=== PATIENT | male | born 1995 | race Caucasian/White ===

== ENCOUNTER 2017-03-14 06:03 | Emergency (ER) ==
--- NOTE | 2017-03-14 06:24 | ED.PDOC ---
General ED Provider: Dr. SOPHIE SMITH-ER Chief Complaint: Sore Throat Stated Complaint: my throat is sore Time Seen by Physician: 06:22 Mode of Arrival: Walk-In Information Source: Patient Exam Limitations: No limitations Primary Care Provider: MOISES COTTRELL Nursing and Triage Documentation Reviewed and Agree: Yes EENT Complaint Exam - Throat Complaint/Exam Onset/Duration: 24hrs Symptoms Are: Still present Initial Severity: Mild Current Severity: Mild Aggravating: Reports: Eating Alleviating: Reports: Antipyretics Associated Signs and Symptoms: Reports: Fever, Nasal congestion. Denies: Dysphagia, Drooling, Foreign body sensation, Chills, Cough, Wheezing, Hoarseness , Sinus discomfort, Difficulty breathing, Lethargy, Irritability, Decreased activity, Vomiting, Diarrhea, Decreased hearing, Ear drainage Related History: Reports: Similar Episode Uvula Midline: Yes Erum-tonsillar Fluctuence: No Scarlatinaform Rash Present: No Exanthem: Present: Pharynx Stridor Present: No Sinus Tenderness Present: No Tonsillar Hypertrophy Present: No Tonsillar Exudate Present: No Erum-tonsillar Swelling Present: No Adenopathy Present: Yes Splenomegaly Present: No Differential Diagnoses: Pharyngitis Review of Systems - Review Of Systems Constitutional: Reports: Fever Eyes: Reports: No symptoms Ears, Nose, Mouth, Throat: Reports: Throat pain, Throat swelling Respiratory: Reports: Cough Cardiac: Reports: No symptoms GI: Reports: No symptoms : Reports: No symptoms Musculoskeletal: Reports: No symptoms Skin: Reports: No symptoms Neurological: Reports: No symptoms Endocrine: Reports: No symptoms Hematologic/Lymphatic: Reports: No symptoms All Other Systems: Reviewed and Negative Past Medical History - Past Medical History Previously Healthy: Yes Endocrine: Reports: None Cardiovascular: Reports: Hypertension Respiratory: Reports: None Hematological: Reports: None Gastrointestinal: Reports: None Genitourinary: Reports: None Neuro/Psych: Reports: None Musculoskeletal: Reports: Back Pain Cancer: Reports: Other Other Pertinent Past Medical History: chronic low back - Surgical History General Surgical History: Reports: Cholecystectomy, Tonsillectomy, Adenoidectomy - Family History Family History: Reports: Unknown - Social History Smoking Status: Never smoker Hx Substance Use: No Alcohol Screening: None Physical Exam - Physical Exam Appearance: Well-appearing Pain Distress: Mild Eyes: RONAK, EOMI, Conjunctiva clear ENT: Erythema Neck: Supple Respiratory: Airway patent, Breath sounds clear, Breath sounds equal, Respirations nonlabored Cardiovascular: RRR, Pulses normal, No rub, No murmur GI/: Soft, Nontender, No masses, Bowel sounds normal, No Organomegaly Musculoskeletal: Normal strength Skin: Warm Neurological: Sensation intact, Motor intact, Reflexes intact, Cranial nerves intact, Alert, Oriented Psychiatric: Affect appropriate, Mood appropriate Critical Care Note - Critical Care Note Total Time (mins): 0 Course - Course Orders, Labs, Meds: Orders Category Date Time Status RAPID STREP SCREEN [STREP SCREEN] Stat LAB 03/14/17 06:21 Uncollected Departure - Departure Time of Disposition: 06:23 Disposition: HOME SELF-CARE Discharge Problem: Sore throat symptom Instructions: Pharyngitis (ED) Condition: Good Pt referred to PMD for follow-up: Yes Additional Instructions: amoxil 500mg tid #30--salt water gargles--tyenol for temp--recheck in 72hrs ifnot better Allergies/Adverse Reactions: Allergies No Known Allergies Allergy (Verified 07/10/16 13:52) Home Medications: Ambulatory Orders Lisinopril [Zestril] 20 mg PO DAILY 06/10/13 Clonidine HCl 0.1 mg PO DAILY 07/10/16 Gabapentin 300 mg PO TID 07/10/16 Disposition Discussed With: Patient
[2017-03-14 06:31] VITALS: BP 146/94; TEMP 98.8; BMI 47.8
== END 2017-03-14 06:38 | disposition home or self-care (01) ==
LOC: ED 06:03
DX: J02.9 Acute pharyngitis, unspecified (principal)
CPT/HCPCS: 87651; 87880; 99283

== ENCOUNTER 2017-03-16 15:48 | Emergency (ER) ==
[2017-03-16 15:48] VITALS: BMI 47.8
[2017-03-16 15:54] VITALS: BP 159/91; TEMP 97.8
[2017-03-16] MEDS ORDERED: CORTISPORIN OTIC SUSP OT STA (16:30)
--- NOTE | 2017-03-16 16:30 | ED.PDOC ---
General ED Provider: Dr. ZOË XIONG JR Chief Complaint: Foreign Body in Ear Stated Complaint: pt states ear was itching so he was using q tip to scratch it and end with cotton is stuck in ear. [ End ] Time Seen by Physician: 16:30 Mode of Arrival: Walk-In Information Source: Patient Exam Limitations: No limitations Primary Care Provider: MOISES COTTRELL Nursing and Triage Documentation Reviewed and Agree: No Review of Systems - Review Of Systems Constitutional: Reports: No symptoms Eyes: Reports: No symptoms Ears, Nose, Mouth, Throat: Reports: Ear pain Respiratory: Reports: No symptoms Cardiac: Reports: No symptoms GI: Reports: No symptoms : Reports: No symptoms Musculoskeletal: Reports: No symptoms Skin: Reports: No symptoms Neurological: Reports: No symptoms Endocrine: Reports: No symptoms Hematologic/Lymphatic: Reports: No symptoms All Other Systems: Other Past Medical History - Past Medical History Previously Healthy: Yes Endocrine: Reports: None Cardiovascular: Reports: Hypertension Respiratory: Reports: None Hematological: Reports: None Gastrointestinal: Reports: None Genitourinary: Reports: None Neuro/Psych: Reports: None Musculoskeletal: Reports: Back Pain Cancer: Reports: Other Other Pertinent Past Medical History: chronic low back - Surgical History General Surgical History: Reports: Cholecystectomy, Tonsillectomy, Adenoidectomy - Family History Family History: Reports: Unknown - Social History Smoking Status: Never smoker Hx Substance Use: No Alcohol Screening: Occasionally Physical Exam - Physical Exam Appearance: Well-appearing, Obese Pain Distress: Mild Eyes: RONAK, EOMI, Conjunctiva clear ENT: Erythema (fl;occulent matter no FB excoriation without edema) Neck: Supple Respiratory: Airway patent, Breath sounds clear, Breath sounds equal, Respirations nonlabored Cardiovascular: RRR, Pulses normal, No rub, No murmur GI/: Soft, Nontender, No masses, Bowel sounds normal, No Organomegaly Musculoskeletal: Normal strength, ROM intact, No edema, No calf tenderness Skin: Warm, Dry, Normal color Neurological: Sensation intact, Motor intact, Reflexes intact, Cranial nerves intact, Alert, Oriented Re-Evaluation - Re-Evaluation Time of Re-Evaluation: 17:14 Status: Improved (after cortisporin no foreign matter observed) - Re-Evaluation Time of Re-Evaluation: 17:20 (rechekc with rn mucoid white matter removed with forcesp) Critical Care Note - Critical Care Note Total Time (mins): 0 Course - Course Vital Signs: Temp Pulse Resp BP Pulse Ox 03/16/17 15:48 97.8 F 114 H 18 159/91 H 95 Departure - Departure Time of Disposition: 17:14 Disposition: HOME SELF-CARE Discharge Problem: Foreign body in ear Instructions: Otitis Externa (ED) Condition: Good Pt referred to PMD for follow-up: Yes Additional Instructions: cortisporin four drops each side four times a day for five days recheck ears PMD one to two weeks return if worse avoid solids in ears may clean with liquids such as glycerine or sweet oil Allergies/Adverse Reactions: Allergies No Known Allergies Allergy (Verified 03/16/17 15:54)
== END 2017-03-16 17:30 | disposition home or self-care (01) ==
LOC: ED 15:48
DX: T16.9XXA Foreign body in ear, unspecified ear, initial encounter (principal); H60.90 Unspecified otitis externa, unspecified ear
CPT/HCPCS: 99282

== ENCOUNTER 2017-06-25 14:18 | Outpatient (CLI) | payer OTHER, BC ==
[2017-06-25 16:05] LABS: BASOPHILS % (AUTO) 0.6 % (0.0-3.0); EOSINOPHILS % (AUTO) 2.1 % (0.0-7.0); HEMATOCRIT 42.9 % (42.0-52.0); HEMOGLOBIN 14.4 g/dl (14.0-18.0); LYMPHOCYTES # (AUTO) 2.3 K/uL (0.60-3.4); LYMPHOCYTES % (AUTO) 24.9 (10.0-50.0); MEAN CORPUSCULAR HEMOGLOBIN 28.6 pg (27.0-31.0); MEAN CORPUSCULAR HGB CONC 33.6 (31.8-35.4); MEAN CORPUSCULAR VOLUME 85.3 fl (80.0-94.0); MONOCYTES # (AUTO) 0.5 K/uL (0.4-2.0); NEUTROPHILS # (AUTO) 6.2 K/ul (2.0-6.9); NEUTROPHILS % (AUTO) 67.1; PLATELET COUNT 273 10^3/uL (140-440); RED BLOOD COUNT 5.03 10^6/ul (4.70-6.10); WHITE BLOOD COUNT 9.32 K/ul (4.2-10.2)
[2017-06-25 16:06] LABS: BASOPHILS # (AUTO) 0.1 K/uL (0-0.2); EOSINOPHILS # (AUTO) 0.2 K/ul (0.0-0.7); IMMATURE GRANULOCYTE % (AUTO) 0.3 % (0.0-5.0)
[2017-06-25 16:46] LABS: ALBUMIN 3.7 g/dL (3.4-5.0); ALBUMIN/GLOBULIN RATIO 0.86; ANION GAP 16.2; BILIRUBIN,TOTAL 0.49 mg/dL (0.00-1.20); BUN/CREATININE RATIO 11.26; CALCIUM 9.7 mg/dL (8.2-10.2); CHOL/HDL RATIO 6.1 (4.5-6.4); CREATININE 0.71 mg/dL (0.60-1.10); POTASSIUM 4.2 mmol/L (3.5-5.1)
== END 2017-06-25 14:19 | disposition home or self-care (01) ==
LOC: RAD 14:18 → CAR 14:19
PROVIDERS: ATTEND Nurse Practitioner Family
DX: E78.5 Hyperlipidemia, unspecified (principal); E66.9 Obesity, unspecified; I10 Essential (primary) hypertension
CPT/HCPCS: 36415; 80053; 80061; 84439; 84443; 85025; 93005; 93010

== ENCOUNTER 2017-07-02 10:30 | Outpatient (CLI) ==
--- NOTE | 2017-07-02 11:14 | US ---
EXAM: Thyroid ultrasound History: Abnormal thyroid function tests. Technique: Multiple sonographic images through the thyroid gland were obtained. Color duplex Dopple r was used to interrogate vascular flow. Findings: The right lobe of the thyroid measures 5.7 cm x 2.2 cm x 2.2 cm and demonstrates multiple nodules wit h the largest being complex and measuring 1.3 cm. The thyroid isthmus measures 0.5 cm in thickness. The left lobe of the thyroid measures 4.9 cm x 2.3 cm x 1.9 cm demonstrates a 1.3 cm complex nodule. The thyroid gland is not hypervascular. No extrathyroidal masses are identified. Impression: Thyroid is upper limits of normal in size. Bilateral thyroid nodules as detailed above. Recommend follow-up ultrasound in 6 months to document stability.
== END 2017-07-02 10:31 | disposition home or self-care (01) ==
LOC: RAD 10:30
PROVIDERS: ATTEND Nurse Practitioner Family
DX: R94.6 Abnormal results of thyroid function studies (principal)

== ENCOUNTER 2017-07-09 14:32 | Outpatient (CLI) ==
--- NOTE | 2017-07-09 15:00 | DI ---
EXAM: KUB HISTORY: Lower back pain. COMPARISON: CT abdomen pelvis 10/09/2013 and multiple priors FINDINGS: There are surgical clips in right upper quadrant. There is scattered gas throughout the co bro. There are no dilated loops of bowel, air fluid levels, pneumatosis or portal venous gas. The l iver appears mildly enlarged. The osseous structures are unremarkable. IMPRESSION: 1. Nonobstructive bowel gas pattern. 2. Hepatomegaly.
[2017-07-09 15:08] LABS: BILIRUBIN,URINE Negative (NEGATIVE); KETONES,URINE Negative (NEGATIVE); LEUKOCYTE ESTERASE ,URINE Negative (NEGATIVE); NITRITE,URINE Negative (NEGATIVE); PH,URINE 7.5 (5-9); PROTEIN,URINE Negative (NEGATIVE); URINE, BLOOD Negative (NEGATIVE)
[2017-07-09 15:36] LABS: ADD URINE MICROSCOPIC NO
== END 2017-07-09 14:33 | disposition home or self-care (01) ==
LOC: RAD 14:32
PROVIDERS: ATTEND Nurse Practitioner Family
DX: M54.5 Low back pain (principal); R74.8 Abnormal levels of other serum enzymes; R73.09 Other abnormal glucose
CPT/HCPCS: 36415; 80074; 81001; 83036

== ENCOUNTER 2017-07-22 14:32 | Emergency (ER) | payer OTHER, BC ==
[2017-07-22 14:42] VITALS: TEMP 97.4; BMI 48.2
--- NOTE | 2017-07-22 14:55 | ED.PDOC ---
General ED Provider: Dr. NOLVIA AMBRIZ Chief Complaint: Respiratory Complaint Stated Complaint: cough, flu like symptoms Time Seen by Physician: 14:35 Mode of Arrival: Walk-In Information Source: Patient Exam Limitations: No limitations Primary Care Provider: MOISES COTTRELL Nursing and Triage Documentation Reviewed and Agree: Yes Respiratory Complaint Exam - Respiratory Complaint/Exam Onset/Duration: 1 week Symptoms Are: Still present, Resolved Timing: Intermittent Initial Severity: Moderate Current Severity: Mild Location: Nose, Throat, Chest Character: Reports: Non-productive cough Aggravating: Reports: None Alleviating: Reports: None Associated Signs and Symptoms: Reports: URI, Nasal congestion, Sore throat Related History: Reports: Similar episode History of Healthcare-Acquired Pneumonia: No Related Surgical History: Reports: None Cardiac Risk Factors: Reports: None Pseudomonas Risk Factors: Reports: None Tuberculosis Risk Factors: Reports: None Status Asthmaticus Risk Factors: Reports: None Home Oxygen Use: No Recent Stress Test: No Recent Echo/LV Function: No Current Antibiotic Use: No Current Asthma Medication Use: No Respiratory Distress: None Inadequate Respiratory Effort: No Dysphagia Present: No Stridor Present: No JVD Present: No Retractions: Not Present Diminished Breath Sounds: No Sinus Tenderness: None Grunting Respirations: No Kussmaul Respirations: No Differential Diagnoses: Pneumonia, Bronchitis Review of Systems - Review Of Systems Constitutional: Reports: Malaise Eyes: Reports: No symptoms Ears, Nose, Mouth, Throat: Reports: Throat pain Respiratory: Reports: Cough Cardiac: Reports: No symptoms GI: Reports: No symptoms : Reports: No symptoms Musculoskeletal: Reports: No symptoms Skin: Reports: No symptoms Neurological: Reports: No symptoms Endocrine: Reports: No symptoms Hematologic/Lymphatic: Reports: No symptoms All Other Systems: Reviewed and Negative Past Medical History - Past Medical History Previously Healthy: Yes Endocrine: Reports: None Cardiovascular: Reports: Hypertension Respiratory: Reports: None Hematological: Reports: None Gastrointestinal: Reports: None Genitourinary: Reports: None Neuro/Psych: Reports: None Musculoskeletal: Reports: Back Pain Cancer: Reports: Other Other Pertinent Past Medical History: chronic low back - Surgical History General Surgical History: Reports: Cholecystectomy, Tonsillectomy, Adenoidectomy - Family History Family History: Reports: Unknown - Social History Smoking Status: Never smoker Hx Substance Use: No Alcohol Screening: Occasionally Physical Exam - Physical Exam Appearance: Well-appearing, No pain distress, Well-nourished Eyes: RONAK, EOMI, Conjunctiva clear ENT: Ears normal, Nose normal, Oropharynx normal Respiratory: Airway patent, Breath sounds clear, Breath sounds equal, Respirations nonlabored Cardiovascular: RRR, Pulses normal, No rub, No murmur GI/: Soft, Nontender, No masses, Bowel sounds normal, No Organomegaly Musculoskeletal: Normal strength, ROM intact, No edema, No calf tenderness Skin: Warm, Dry, Normal color Neurological: Sensation intact, Motor intact, Reflexes intact, Cranial nerves intact, Alert, Oriented Psychiatric: Affect appropriate, Mood appropriate Critical Care Note - Critical Care Note Total Time (mins): 0 Course - Course Vital Signs: Temp Pulse Resp BP Pulse Ox 07/22/17 14:36 97.4 F L 106 H 20 0/0 L 96 Departure - Departure Time of Disposition: 14:54 Disposition: HOME SELF-CARE Discharge Problem: Bronchitis Instructions: Wheezing (ED), How Your Lungs Work (ED), Acute Bronchitis (ED) Condition: Good Pt referred to PMD for follow-up: Yes Additional Instructions: Please call your Family Physician as soon as possible to schedule a follow-up appointment. Allergies/Adverse Reactions: Allergies No Known Allergies Allergy (Verified 07/22/17 14:43)
[2017-07-22 15:14] VITALS: BP 142/92
== END 2017-07-22 15:03 | disposition home or self-care (01) ==
LOC: ED 14:32
DX: J40 Bronchitis, not specified as acute or chronic (principal)
CPT/HCPCS: 99282

== ENCOUNTER 2017-07-29 14:30 | Outpatient (CLI) | payer OTHER, BC ==
--- NOTE | 2017-07-29 15:29 | DI ---
EXAM: Right wrist, three views, 07/29/2017 HISTORY: Paresthesia COMPARISON: None. FINDINGS / IMPRESSION: Normal anatomic alignment is maintained. The visualized osseous structures a ppear intact. No fracture or dislocation. No gross soft tissue abnormality. No acute osseous abnormality.
== END 2017-07-29 14:31 | disposition home or self-care (01) ==
LOC: RAD 14:30
PROVIDERS: ATTEND Nurse Practitioner Family
DX: R20.2 Paresthesia of skin (principal)

== ENCOUNTER 2017-09-10 02:26 | Emergency (ER) ==
[2017-09-10 02:38] VITALS: TEMP 98.3; BMI 53.1
[2017-09-10] MEDS ORDERED: ZOFRAN 4 MG/2 ML IVP STA (02:41)
[2017-09-10] MEDS ORDERED: PROTONIX IV IVP STA (02:41)
[2017-09-10] MEDS ORDERED: SODIUM CHLORIDE 1,000 ML IV STA (02:41)
[2017-09-10] MEDS ORDERED: MORPHINE 4 MG/ML VIAL IVP STA (02:46)
[2017-09-10 02:58] LABS: BASOPHILS # (AUTO) 0.1 K/uL (0-0.2); BASOPHILS % (AUTO) 0.6 % (0.0-3.0); EOSINOPHILS # (AUTO) 0.1 K/ul (0.0-0.7); EOSINOPHILS % (AUTO) 0.9 % (0.0-7.0); HEMATOCRIT 42.9 % (42.0-52.0); HEMOGLOBIN 14.3 g/dl (14.0-18.0); IMMATURE GRANULOCYTE % (AUTO) 0.4 % (0.0-5.0); LYMPHOCYTES # (AUTO) 2.9 K/uL (0.60-3.4); LYMPHOCYTES % (AUTO) 19.5 (10.0-50.0); MEAN CORPUSCULAR HEMOGLOBIN 28.7 pg (27.0-31.0); MEAN CORPUSCULAR HGB CONC 33.3 (31.8-35.4); MONOCYTES # (AUTO) 1.1 K/uL (0.4-2.0); MONOCYTES % (AUTO) 7.2 (0-10); NEUTROPHILS # (AUTO) 10.6 K/ul (2.0-6.9); NEUTROPHILS % (AUTO) 71.4; PLATELET COUNT 284 10^3/uL (140-440); RED BLOOD COUNT 4.99 10^6/ul (4.70-6.10); WHITE BLOOD COUNT 14.85 K/ul (4.2-10.2)
[2017-09-10 02:59] LABS: BILIRUBIN,URINE Negative (NEGATIVE); KETONES,URINE Negative (NEGATIVE); LEUKOCYTE ESTERASE ,URINE Negative (NEGATIVE); NITRITE,URINE Negative (NEGATIVE); PH,URINE 5.5 (5-9); PROTEIN,URINE Negative (NEGATIVE); URINE, BLOOD Negative (NEGATIVE)
[2017-09-10 03:02] LABS: ADD URINE MICROSCOPIC NO
[2017-09-10 03:18] LABS: ALBUMIN 4.1 g/dL (3.4-5.0); ALBUMIN/GLOBULIN RATIO 0.95; ANION GAP 18.3; BILIRUBIN,TOTAL 0.59 mg/dL (0.00-1.20); BUN/CREATININE RATIO 17.33; CREATININE 0.75 mg/dL (0.60-1.10); POTASSIUM 4.3 mmol/L (3.5-5.1); TOTAL PROTEIN 8.4 g/dL (6.4-8.2)
--- NOTE | 2017-09-10 03:32 | CT ---
Exam: CT of the abdomen and pelvis without contrast History: Right upper quadrant abdominal pain Technique: [address] of the abdomen and pelvis without intravascular contrast FINDINGS: The lung bases are clear. The liver density is diffusely decreased measuring 15 HU. The cranial caudal liver diameter is 30 cm. Prior cholecystectomy. The pancreas, spleen and left adrena l gland appear normal. There is a 2.6 cm right adrenal adenoma. Kidneys and proximal collecting syst em are unremarkable. The appendix is normal. Bowel loops demonstrate normal caliber. No inflamatory c hange seen in the mesentery or retroperitoneum. Vascular structures appear normal by noncontrast CT. Pelvic genitourinary structures appear normal. Pelvic bowel loops are unremarkable. No inflammatory c hange in the pelvic fat. No acute abnormality of the abdominal or pelvic skeleton. Prior L3 fracture versus vertebral anomaly with associated mild right convexity stable from 10/09/2013. Impression: 1. No inflammatory process, bowel or urinary obstruction is seen. 2. Severe liver steatosis with hepatomegaly
--- NOTE | 2017-09-10 04:20 | ED.PDOC ---
General ED Provider: Dr. BRYANT MONROE Chief Complaint: Abdominal Pain Stated Complaint: Patient is a 22 year old who states he woke up yesterday morning with RUQ abdominal pain and cramping, emesis >10 times, 5 x within the last hour. Diarrhea stools since noon, about 10 Time Seen by Physician: 02:45 Mode of Arrival: Walk-In Information Source: Patient Primary Care Provider: MOISES COTTRELL Nursing and Triage Documentation Reviewed and Agree: Yes Review of Systems - Review Of Systems Constitutional: Reports: No symptoms Eyes: Reports: No symptoms Ears, Nose, Mouth, Throat: Reports: No symptoms Respiratory: Reports: No symptoms Cardiac: Reports: No symptoms GI: Reports: Abdominal pain, Diarrhea, Nausea, Vomiting : Reports: No symptoms Musculoskeletal: Reports: No symptoms Skin: Reports: No symptoms Neurological: Reports: No symptoms Endocrine: Reports: No symptoms Hematologic/Lymphatic: Reports: No symptoms All Other Systems: Reviewed and Negative Past Medical History - Past Medical History Previously Healthy: Yes Endocrine: Reports: None Cardiovascular: Reports: Hypertension Respiratory: Reports: None Hematological: Reports: None Gastrointestinal: Reports: None Genitourinary: Reports: None Neuro/Psych: Reports: None Musculoskeletal: Reports: Back Pain Cancer: Reports: None Other Pertinent Past Medical History: chronic low back, obesity - Surgical History General Surgical History: Reports: Cholecystectomy, Tonsillectomy, Adenoidectomy - Family History Family History: Reports: Unknown - Social History Smoking Status: Never smoker Hx Substance Use: No Alcohol Screening: Occasionally - Immunizations Tetanus Shot up to Date: Yes Physical Exam - Physical Exam Appearance: Ill-appearing, Obese Ill-appearing: Moderate Pain Distress: Severe Neck: Supple Respiratory: Airway patent, Breath sounds clear, Breath sounds equal, Respirations nonlabored GI/: Tender Musculoskeletal: Normal strength Skin: Warm, Dry, Normal color Neurological: Sensation intact, Motor intact Psychiatric: Anxious Interpretation - Radiology Interpretation Radiology Interpretation By: Radiologist Radiology Results: Negative Exam Interpreted: CT Scan (severe liver steatosis ) Re-Evaluation - Re-Evaluation Time of Re-Evaluation: 04:00 Status: Improved Vital Signs Stable: Yes Pain Level: better Critical Care Note - Critical Care Note Total Time (mins): 0 Course - Course Hematology/Chemistry: 09/10/17 02:55 09/10/17 02:55 Orders, Labs, Meds: Lab Review 11/09/10/17 09/10/17 02:55 02:55 02:55 WBC 14.85 H RBC 4.99 Hgb 14.3 Hct 42.9 MCV 86.0 MCH 28.7 MCHC 33.3 RDW Coeff of Stephen 13.5 Plt Count 284 Immature Gran % (Auto) 0.4 Neut % (Auto) 71.4 Lymph % (Auto) 19.5 [place] % (Auto) 7.2 Eos % (Auto) 0.9 Baso % (Auto) 0.6 Immature Gran # (Auto) 0.1 Neut # 10.6 H Lymph # 2.9 [place] # 1.1 Eos # 0.1 Baso # 0.1 Sodium 136 Potassium 4.3 Chloride 103 Carbon Dioxide 19 L Anion Gap 18.3 BUN 13 Creatinine 0.75 Estimated GFR (MDRD) 131.00 BUN/Creatinine Ratio 17.33 Glucose 209 H Calcium 10.0 Total Bilirubin 0.59 AST 55 H ALT 100 H Alkaline Phosphatase 77 Total Protein 8.4 H Albumin 4.1 Globulin 4.3 Albumin/Globulin Ratio 0.95 Amylase 45 Lipase 19 Urine Color Yellow Urine Clarity Clear Urine pH 5.5 Ur Specific [place] 1.025 Urine Protein Negative Urine Glucose (UA) Negative Urine Ketones Negative Urine Blood Negative Urine Nitrite Negative Urine Bilirubin Negative Urine Urobilinogen 0.2 Ur Leukocyte Esterase Negative Orders Category Date Time Status ED IV/MEDIPORT/POWERPORT .ONCE EMERGENCY 09/10/17 02:41 Active AMYLASE Stat LAB 09/10/17 02:55 Completed CBC W/ AUTO DIFF Stat LAB 09/10/17 02:55 Completed COMPREHENSIVE METABOLIC PANEL Stat LAB 09/10/17 02:55 Completed LIPASE Stat LAB 09/10/17 02:55 Completed URINALYSIS C & S IF INDICATED Stat LAB 09/10/17 02:55 Completed 0.9 % Sodium Chloride [Saline Flush] MEDS 09/10/17 02:41 Discontinued 1 syr IVF PRN PRN Ketorolac Tromethamine [Toradol] MEDS 09/10/17 04:23 Discontinued 30 mg IVP ONCE STA Morphine Sulfate [Morphine 4 mg/ml Vial] MEDS 09/10/17 02:46 Discontinued 4 mg IVP ONCE STA Ondansetron HCl/Pf [Zofran 4 mg/2 ml] MEDS 09/10/17 02:41 Discontinued 4 mg IVP ONCE STA Pantoprazole Sodium [Protonix IV] MEDS 09/10/17 02:41 Discontinued 40 mg IVP ONCE STA Sodium Chloride 0.9% [Sodium Chloride] 1,000 ml MEDS 09/10/17 02:[address] ABD/PEL WO RENAL STONE PROT Stat RADS 09/10/17 02:41 Completed Medications Discontinued Medications Generic Name Dose Route Start Last Admin Trade Name Freq PRN Reason Stop Dose Admin Sodium Chloride 1,000 mls @ 1,000 mls/hr 09/10/17 02:41 09/10/17 03:15 Sodium Chloride IV 09/10/17 03:40 1,000 mls/hr BOLUS STA Administration Ketorolac Tromethamine 30 mg 09/10/17 04:23 09/10/17 04:33 Toradol IVP 09/10/17 04:24 30 mg ONCE STA Administration Morphine Sulfate 4 mg 09/10/17 02:46 09/10/17 03:16 Morphine 4 Mg/Ml Vial IVP 09/10/17 02:47 4 mg ONCE STA Administration Ondansetron HCl 4 mg 09/10/17 02:41 09/10/17 03:16 Zofran 4 Mg/2 Ml IVP 09/10/17 02:42 4 mg ONCE STA Administration Pantoprazole Sodium 40 mg 09/10/17 02:41 09/10/17 03:19 Protonix Iv IVP 09/10/17 02:42 40 mg ONCE STA Administration Sodium Chloride 1 syr 09/10/17 02:41 09/10/17 03:21 Saline Flush IVF 1 syr PRN PRN Administration To flush IV Vital Signs: Temp Pulse Resp BP Pulse Ox 09/10/17 04:55 128/73 09/10/17 02:27 98.3 F 107 H 20 164/97 H 97 Departure - Departure Time of Disposition: 04:45 Disposition: HOME SELF-CARE Discharge Problem: Abdominal pain, Fatty liver disease, nonalcoholic Instructions: Non-Alcoholic Fatty Liver Disease (ED), Abdominal Pain (ED) Condition: Fair Pt referred to PMD for follow-up: Yes Additional Instructions: Push fluids Take medications as prescribed Follow up with PCP ini 3 days. Prescriptions: Dicyclomine HCl [Bentyl] 10 mg PO TID PRN #20 capsule PRN Reason: Abdominal Pain Pantoprazole Sodium [Protonix] 40 mg PO DAILY LAB #30 tablet. Allergies/Adverse Reactions: Allergies No Known Allergies Allergy (Verified 09/10/17 02:38) Home Medications: Ambulatory Orders Dicyclomine HCl [Bentyl] 10 mg PO TID PRN #20 capsule 09/10/17 Pantoprazole Sodium [Protonix] 40 mg PO DAILY LAB #30 tablet. 09/10/17 Disposition Discussed With: Patient, Family
[2017-09-10] MEDS ORDERED: TORADOL IVP STA (04:23)
[2017-09-10 04:55] VITALS: BP 128/73
== END 2017-09-10 04:56 | disposition home or self-care (01) ==
LOC: ED 02:26
DX: R10.9 Unspecified abdominal pain (principal); K76.0 Fatty (change of) liver, not elsewhere classified
CPT/HCPCS: 36415; 74176; 80053; 81001; 82150; 83690; 85025; 96361; 96374; 96375; 99283

== ENCOUNTER 2017-09-11 07:47 | Outpatient (CLI) ==
[2017-09-11 09:00] VITALS: BMI 52.1
== END 2017-09-11 07:48 | disposition home or self-care (01) ==
LOC: DIETCN 07:47
PROVIDERS: ATTEND Nurse Practitioner Family
DX: E11.9 Type 2 diabetes mellitus without complications (principal)
CPT/HCPCS: 97802

== ENCOUNTER 2017-09-15 08:49 | Outpatient (CLI) ==
--- NOTE | 2017-09-15 09:31 | US ---
EXAM: Abdominal ultrasound limited HISTORY: Diabetes and right upper quadrant pain COMPARISON: CT abdomen pelvis 10/09/2013 and ultrasound 12/02/2015 TECHNIQUE: Sonographic and limited Doppler evaluation of the right upper quadrant was performed. FINDINGS: The liver is increased in echogenicity and measures enlarged at 23 cm. The portal vein is patent. The gallbladder has been removed. Common bile duct is unremarkable and measures 0.6 cm in d iameter. The pancreas is not visualized due to bowel gas. The right kidney measures 13.4 x 6.5 x 5. 9 cm with 2 cm of renal cortical thickening. IMPRESSION: Hepatomegaly with increased echogenicity consistent with hepatic steatosis versus hepati c parenchymal disease. Prior cholecystectomy.
== END 2017-09-15 08:50 | disposition home or self-care (01) ==
LOC: RAD 08:49
PROVIDERS: ATTEND Nurse Practitioner Family
DX: E11.9 Type 2 diabetes mellitus without complications (principal)

== ENCOUNTER 2017-12-29 10:44 | Outpatient (CLI) | END 2017-12-29 10:45 | disposition home or self-care (01) | LOC: FCC-LAB 10:44 | PROVIDERS: ATTEND Nurse Practitioner Family | DX: E78.5 Hyperlipidemia, unspecified (principal); E11.9 Type 2 diabetes mellitus without complications; I10 Essential (primary) hypertension | CPT/HCPCS: 36415; 80053; 80061; 83036; 85025 ==

== ENCOUNTER 2018-02-13 11:31 | Outpatient (CLI) | payer OTHER, BC ==
--- NOTE | 2018-02-13 12:15 | US ---
Exam: Cho-scale and color ultrasonographic evaluation of the abdominal soft tissues. Comparison: CT abdomen pelvis performed 10/09/2013. Reason for exam: Localize swelling, lump or mass. FINDINGS: There are nodular densities seen in the subcutaneous fat of the anterior abdomen. Two nod ules are seen in the right M1 nodule is seen on the left. The largest nodule on the left measures ap proximately 1.94 x 1.0 x 3.5 cm. The left nodule measures approximately 1.6 x 1.3 x 1.6 cm. There is a potential communication from the nodular densities to the skin seen bilaterally. Impression: Nonspecific nodular densities are seen within the subcutaneous fat of the abdomen with potential cuta neous tracts. Imaging findings can be seen with injection granuloma, sebaceous collections, post infl ammatory change, and other etiologies. The differential remains wide. If clinical concern exists, CT imaging may be performed for further characterization.
== END 2018-02-13 11:32 | disposition home or self-care (01) ==
LOC: RAD 11:31
PROVIDERS: ATTEND Nurse Practitioner Family
DX: R22.2 Localized swelling, mass and lump, trunk (principal)

== ENCOUNTER 2018-05-07 11:47 | Outpatient (CLI) | END 2018-05-07 11:48 | disposition home or self-care (01) | LOC: FCC-LAB 11:47 | PROVIDERS: ATTEND Nurse Practitioner Family | DX: E11.9 Type 2 diabetes mellitus without complications (principal); I10 Essential (primary) hypertension; F41.8 Other specified anxiety disorders | CPT/HCPCS: 36415; 80053; 80061; 83036; 84439; 84443; 85025 ==

== ENCOUNTER 2023-12-31 15:28 | Inpatient (IN) ==
[2023-12-31 15:59] LABS: BASOPHILS # (AUTO) 0.1 K/uL (0-0.2); BASOPHILS % (AUTO) 0.9 % (0.0-3.0); EOSINOPHILS # (AUTO) 0.3 K/ul (0.0-0.7); EOSINOPHILS % (AUTO) 3.5 % (0.0-7.0); HEMATOCRIT 41.1 % (42.0-52.0); HEMOGLOBIN 13.1 g/dl (14.0-18.0); IMMATURE GRANULOCYTE # (AUTO) 0.1 (0.0-1.0); IMMATURE GRANULOCYTE % (AUTO) 0.6 % (0.0-5.0); LYMPHOCYTES # (AUTO) 2.5 K/uL (0.60-3.4); MEAN CORPUSCULAR HEMOGLOBIN 27.4 pg (27.0-31.0); MEAN CORPUSCULAR HGB CONC 31.9 (31.8-35.4); MONOCYTES # (AUTO) 0.4 K/uL (0.4-2.0); MONOCYTES % (AUTO) 4.4 (0-10); NEUTROPHILS # (AUTO) 4.8 K/ul (2.0-6.9); NEUTROPHILS % (AUTO) 59.6 % (42.2-75.2); PLATELET COUNT 292 10^3/uL (140-440); RDW COEFFICIENT OF VARIATION 14.5 % (11.6-14.8); RED BLOOD COUNT 4.78 10^6/ul (4.70-6.10)
[2023-12-31 16:09] LABS: ALANINE AMINOTRANSFERASE 43.7 U/L (0-50); ALKALINE PHOSPHATASE 97.5 U/L (38-126); ASPARTATE AMINO TRANSFERASE 36.8 U/L (17-59); BILIRUBIN,TOTAL 0.64 mg/dL (0.2-1.3); BLOOD UREA NITROGEN 8.5 mg/dL (9-20); CALCIUM 9.16 mg/dL (8.4-10.2); CARBON DIOXIDE 20.8 mmol/L (22-30.0); CHLORIDE 108.3 mmol/L (98-107); CREATININE 0.44 mg/dL (0.60-1.10); GLUCOSE 280.9 mg/dL (74-106); TOTAL PROTEIN 7.86 g/dL (6.3-8.2)
[2023-12-31 16:11] LABS: SODIUM 138.4 mmol/L (134.5-145)
[2023-12-31 16:15] LABS: MOLECULAR FLU A NEGATIVE BY NAAT (NEGATIVE); MOLECULAR FLU B NEGATIVE BY NAAT (NEGATIVE); SARS COV-2 RNA RAPID NAAT NEGATIVE (NEGATIVE)
--- NOTE | 2023-12-31 16:15 | DI ---
EXAM: FRONTAL CHEST RADIOGRAPH(S). 1 VIEW. History: Chest pain, shortness of breath Comparison: 01/31/2023 Findings: Heart size normal. No pneumothorax or pleural effusion. Pulmonary alveolar edema. No lob ar consolidation. Impression: Pulmonary alveolar edema.
[2023-12-31] MEDS: ASPIRIN CHEWABLE PO STA (16:19)
[2023-12-31 16:21] LABS: TROPONIN I < 0.012 ng/ml (0.0000-0.120)
[2023-12-31 16:25] LABS: AMPHETAMINE SCREEN,URINE NEGATIVE (NEGATIVE); BARBITURATE SCREEN,URINE NEGATIVE (NEGATIVE); BENZODIAZEPINES SCREEN,URINE NEGATIVE (NEGATIVE); CANNABINOID SCREEN,URINE POSITIVE (NEGATIVE); COCAIN SCREEN,URINE NEGATIVE (NEGATIVE); METHADONE URINE SCREEN NEGATIVE (NEGATIVE); METHAMPHETAMINES SCREEN,URINE NEGATIVE (NEGATIVE); OPIATE SCREEN,URINE NEGATIVE (NEGATIVE); OXYCODONE URINE SCREEN NEGATIVE (NEGATIVE); PHENCYCLIDINE SCREEN,URINE NEGATIVE (NEGATIVE); TRICYCLIC ANTIDEPRESSANTS URIN NEGATIVE (NEGATIVE)
[2023-12-31] MEDS: DECADRON IVP ONE (17:36)
--- NOTE | 2023-12-31 17:57 | CT ---
EXAM: CHEST CTA WITH CONTRAST (PULMONARY ARTERY) HISTORY: Chest pain and shortness of breath. Cough. TECHNIQUE: CTA acquisition of the chest from the thoracic inlet to the upper abdomen following IV con trast administration timed to filling of the pulmonary artery. IV Contrast: 100 mL of Omnipaque 350 administered. 3D/MIP/VR images were utilized. CT Dose Reduction Techniques Employed: Yes. COMPARISON: None. FINDINGS: Pulmonary Embolism: - Diagnostic quality: Adequate. - Central (Main/Lobar/Interlobar): No embolus. - Peripheral (Segmental/Subsegmental): No embolus. - Right ventricle/Left ventricle ratio: Normal. Lines, Tubes, Devices: None. Lung Parenchyma and Airways: Central airways are patent without endobronchial lesion. Moderate diffu se bilateral ground-glass opacification bilaterally in the perihilar distribution with regions of con fluence and consolidation in the upper lung zones. No suspicious pulmonary nodule. Pleural Space: No pleural effusion or thickening. No pneumothorax. Thoracic Inlet, Mediastinum, and Saray: Thyroid gland is normal. No lymphadenopathy. Heart, Vessels, and Pericardium: The thoracic aorta is not dilated. No aortic dissection. The heart chambers are not enlarged. There is no pericardial effusion or thickening. Bones and Soft Tissues: There is no fracture or lytic lesion. Chest wall soft tissues are unremarkab le. Upper Abdomen: Diffuse decreased attenuation of the liver. Probable hepatomegaly. Right adrenal 3. 3 x 2.5 cm nodule measuring 13 HU. Normal visualized portion of left adrenal. Surgical clips from p revious cholecystectomy. IMPRESSION: 1. Normal CT pulmonary angiogram with no evidence of pulmonary artery embolism. 2. Bilateral consolidation and ground-glass opacification consistent with probable atypical pneumoni a. 3. 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 4. Right adrenal 3.3 cm nodule. Follow-up as indicated below. 5. Previous cholecystectomy. 6. Otherwise unremarkable CT scan of the chest. Follow up Recommendations for Incidental Adrenal Nodules. No follow up: -Nodule < 1 cm. -Nodule >1 cm <4 cm stable for >1 year. -Nodule < 10 HU. -Non enhancing nodule. -Nodule containing macroscopic fat. - Nodules 1-2 cm (probably benign): [address] Adrenal follow-up can be considered in the absence of prior imaging or history of cancer. - Nodules 2-4 cm: Adrenal CT - Nodules > 4 cm: resection (no cancer history) or PET/biopsy (cancer history) Adapted from: ErieIssa LIN, et al. Management of Incidental Adrenal Masses: A White Paper of the AC R Incidental Findings Committee. J Am Latanya Radiol. 2017;14(8):8950-6477. doi:10.1016/j.jacr.2017.[address] scans are performed using dose optimization techniques as appropriate to the performed exam an d include at least one of the following: Automated exposure control, adjustment of the mA and/or kV according t o size, and the use of iterative reconstruction technique.
[2023-12-31] MEDS ORDERED: LIDOCAINE 1% 5 ML SDV IM ONE (18:42)
[2023-12-31] MEDS ORDERED: SODIUM CHLORIDE IV ONE (18:42)
[2023-12-31] MEDS ORDERED: ROCEPHIN IV ONE (18:42)
[2023-12-31] MEDS: ROCEPHIN 1 GM/50 ML D5W 1 GM/50 ML BAG IV ONE (19:13)
[2023-12-31] MEDS: ZITHROMAX PO ONE (19:14)
--- NOTE | 2023-12-31 19:33 | ED.PDOC ---
General ED Provider: Dr. ALMA DELIA KNOX DO Chief Complaint: Chest Pain Stated Complaint: 28-year-old male presents to the ER reporting significant shortness of breath that he noticed today. He is felt unwell for the last several days and had to cancel a trip to [place] due to his illness a couple days ago. Today he noticed that he would abruptly get very short of breath and this worried him because this is not normal for him. He does have a history of hypertension as well as insulin-dependent diabetes. Reports compliance with his medications. Denies fever, sick contacts, cough, abdominal pain, chest pain, GI or symptoms. He is a non-smoker. Denies any exposures to environmental toxins, fires, burning pits or other inhalants. Time Seen by Provider: 12/31/23 15:30 Information Source: Patient Primary Care Provider: LUCA SRINIVASAN Nursing and Triage Documentation Reviewed and Agree: Yes What is Opioid Naive?: *Opioid Naive implies the patient is not already taking opioids or not chronically receiving opioids on a daily basis. *PRN dosing is not "usually" associated with tolerance. *Patients are at higher risk of over-sedation and aspiration. What is Opioid Tolerant?: *Opioid Tolerance implies less than the expected response to an opioid. *Acquired tolerance is defined by the patient taking 60mg of oral morphine daily (or equianalgesic dose of another opioid) for 1 week or more. *Often associated with chronic pain. *May take more than usual dose to achieve desired pain control. Review of Systems Review Of Systems Constitutional: Reports No symptoms All Other Systems: Reviewed and Negative [facility] Medical History Hypertension I10 - Essential (primary) hypertension (ICD-10) Personal history of musculoskeletal disorder Compression fracture of L3 Z87.39 - Personal history of other diseases of the musculoskeletal system and connective tissue (ICD-10) Family History Mother Diabetes FATHER Diabetes Grandfather/Grandmother Diabetes Other Fibromyalgia Glaucoma Neuropathy Social History Smoking and tobacco status: Never smoker Surgical History Status post tonsillectomy Z90.89 - Acquired absence of other organs (ICD-10) Status post cholecystectomy Z90.49 - Acquired absence of other specified parts of digestive tract (ICD- 10) Status post tonsillectomy and adenoidectomy Z90.89 - Acquired absence of other organs (ICD-10) Physical Exam Physical Exam Appearance: Reports Well-appearing, No pain distress, Well-nourished and Obese Eyes: Reports RONAK, EOMI and Conjunctiva clear ENT: Reports Nose normal and Oropharynx normal Neck: Supple Respiratory: Reports Airway patent, Breath sounds clear, Breath sounds equal and Respirations nonlabored Cardiovascular: Reports RRR, Pulses normal and Other (Hypertensive on presentation) Musculoskeletal: Reports Normal strength, ROM intact and No edema Skin: Reports Warm, Dry and Normal color Neurological: Reports Sensation intact, Motor intact, Alert and Oriented Psychiatric: Reports Affect appropriate and Mood appropriate Interpretation EKG Interpretation EKG Interpretation By: ED Physician Time of EKG #1: 15:51 Rate: Normal Rhythm: Sinus Ectopy: None [place]: NL ST Segment: Normal Interpretation: Nonischemic EKG Course Course 12/31/23 15:49 12/31/23 15:49 Orders, Labs, Meds: Lab Review 12/31/23 12/31/23 12/31/23 15:43 15:49 16:09 WBC 8.10 RBC 4.78 Hgb 13.1 L Hct 41.1 L MCV 86.0 MCH 27.4 MCHC 31.9 RDW Coeff of Stephen 14.5 Plt Count 292 Immature Gran % (Auto) 0.6 Neut % (Auto) 59.6 Lymph % (Auto) 31.0 [place] % (Auto) 4.4 Eos % (Auto) 3.5 Baso % (Auto) 0.9 Neut # (Auto) 4.8 Lymph # (Auto) 2.5 [place] # (Auto) 0.4 Eos # (Auto) 0.3 Baso # (Auto) 0.1 Immature Gran # (Auto) 0.1 Sodium 138.4 Potassium 3.50 Chloride 108.3 H Carbon Dioxide 20.8 L Anion Gap 12.80 BUN 8.5 L Creatinine 0.44 L Estimated GFR (MDRD) 231.00 BUN/Creatinine Ratio 19.31 Glucose 280.9 H Calcium 9.16 Total Bilirubin 0.64 AST 36.8 ALT 43.7 Alkaline Phosphatase 97.5 Troponin I < 0.012 NT-Pro-B Natriuret Pep Total Protein 7.86 Albumin 4.10 Globulin 3.76 Albumin/Globulin Ratio 1.09 Urine Opiates Screen Negative Ur Oxycodone Screen Negative Urine Methadone Screen Negative Ur Barbiturates Screen Negative U Tricyclic Antidepress Negative Ur Phencyclidine Scrn Negative Ur Amphetamine Screen Negative U Methamphetamines Scrn Negative U Benzodiazepines Scrn Negative Urine Cocaine Screen Negative U Cannabinoids Screen Positive H Influ A Molecular Assay Negative by naat Influ B Molecular Assay Negative by naat SARS CoV-2 RNA Rapid LIAM Negative 12/31/23 16:29 WBC RBC Hgb Hct MCV MCH MCHC RDW Coeff of Stephen Plt Count Immature Gran % (Auto) Neut % (Auto) Lymph % (Auto) [place] % (Auto) Eos % (Auto) Baso % (Auto) Neut # (Auto) Lymph # (Auto) [place] # (Auto) Eos # (Auto) Baso # (Auto) Immature Gran # (Auto) Sodium Potassium Chloride Carbon Dioxide Anion Gap BUN Creatinine Estimated GFR (MDRD) BUN/Creatinine Ratio Glucose Calcium Total Bilirubin AST ALT Alkaline Phosphatase Troponin I NT-Pro-B Natriuret Pep < 20 Total Protein Albumin Globulin Albumin/Globulin Ratio Urine Opiates Screen Ur Oxycodone Screen Urine Methadone Screen Ur Barbiturates Screen U Tricyclic Antidepress Ur Phencyclidine Scrn Ur Amphetamine Screen U Methamphetamines Scrn U Benzodiazepines Scrn Urine Cocaine Screen U Cannabinoids Screen Influ A Molecular Assay Influ B Molecular Assay SARS CoV-2 RNA Rapid LIAM Orders Category Date Time Status ADMIT PATIENT INPATIENT .TO [facility] (MONITORED BED) ADMISSION 12/31/23 19:29 Active ABG DRAW REQUEST Stat CARDIO 12/31/23 19:19 Ordered EKG-(ED ONLY) Stat CARDIO 12/31/23 15:30 Completed NEBULIZER TREATMENT Stat CARDIO 12/31/23 19:20 Ordered GIVE HS SNACK 2100 CARE 12/31/23 19:31 Active NPO REMINDER: IMAGING ONCE CARE 12/31/23 17:09 Completed TELEMETRY MONITORING TELE CARE 12/31/23 19:29 Active ADA 2400 RANDY DIET DIETARY 01/01/24 Breakfast Ordered HS SNACK DIETARY 12/31/23 Dinner Ordered ABG COOX Stat LAB 12/31/23 19:20 Ordered BMP [BASIC METABOLIC PANEL] DAILY@0600 LAB 01/01/24 06:00 Ordered BMP [BASIC METABOLIC PANEL] DAILY@0600 LAB 01/02/24 06:00 Ordered CBC W/ AUTO DIFF DAILY@0600 LAB 01/01/24 06:00 Ordered CBC W/ AUTO DIFF DAILY@0600 LAB 01/02/24 06:00 Ordered CBC W/ AUTO DIFF Stat LAB 12/31/23 15:49 Completed CMP [COMPREHENSIVE METABOLIC PANEL] Stat LAB 12/31/23 15:49 Completed COVID [SARS COV-2 RNA RAPID LIAM] Stat LAB 12/31/23 15:43 Completed DRUG SCREEN (RAPID FOR ED) [DRUG SCREEN, URINE, RAPID] LAB 12/31/23 16:09 Completed Stat ED PROBNP [NT-PROBNP(ED)] Stat LAB 12/31/23 16:29 Completed FLU A & B MOLECULAR [FLU A/B MOLECULAR] Stat LAB 12/31/23 15:43 Completed TROPONIN I Stat LAB 12/31/23 15:49 Completed Aspirin [Aspirin Chewable] Meds 12/31/23 15:30 Discontinued 324 mg PO ONCE STA Azithromycin [Zithromax] Meds 12/31/23 18:42 Discontinued 500 mg PO ONCE ONE Ceftriaxone/D5w 1 gm Premix [Rocephin 1 gm/50 ml D5w] Meds 12/31/23 18:58 Discontinued 1 gm in 50 ml IV ONCE Dexamethasone Sod Phosphate [Decadron] Meds 12/31/23 17:09 Discontinued 10 mg IVP ONCE ONE Ipratropium/Albuterol Neb [Duoneb] Meds 12/31/23 19:19 Discontinued 6 ml NEB ONCE STA CHEST, 1V AP ONLY Stat RADS 12/31/23 15:30 Completed CHEST, 1V AP ONLY Timed RADS 01/01/24 06:00 Ordered CTA CHEST PE PROTOCOL Stat RADS 12/31/23 17:09 Completed Medications Discontinued Medications Generic Name Dose Route Start Last Admin Trade Name Freq PRN Reason Stop Dose Admin Albuterol/Ipratropium 6 ml 12/31/23 19:19 Ipratropium/Albuterol Vial.Neb NEB 12/31/23 19:20 ONCE STA Aspirin 324 mg 12/31/23 15:30 12/31/23 16:19 Aspirin 81 Mg Tab.Chew PO 12/31/23 15:31 324 mg ONCE STA Administration Azithromycin 500 mg 12/31/23 18:42 12/31/23 19:14 Azithromycin 250 Mg Tablet PO 12/31/23 18:43 500 mg ONCE ONE Administration Dexamethasone Sodium Phosphate 10 mg 12/31/23 17:09 12/31/23 17:36 Dexamethasone Sod Phos 10 Mg/Ml Inj IVP 12/31/23 17:10 10 mg ONCE ONE Administration CEFTRIAXONE/D5W 1 GM PREMIX 1 gm in 50 mls @ 100 mls/hr 12/31/23 18:58 12/31/23 19:13 Rocephin 1 Gm/50 Ml D5w IV 12/31/23 19:27 100 mls/hr ONCE ONE Administration Vital Signs: Temp Pulse Resp BP Pulse Ox 12/31/23 15:37 98.2 F 91 20 183/95 H 97 Discharge Plan Discharge Patient Disposition: ADMITTED INPATIENT Discharge Problem: Pneumonia, Insulin dependent type 2 diabetes mellitus, Hypoxia Hypertension Qualifiers: Hypertension type: primary hypertension Qualified Code(s): I10 - Essential (primary) hypertension Did you review [place] [employer] for ALL controlled substances?: Not Applicable ED Provider: ALMA DELIA KNOX Condition: Stable Physician Progress Note: 28-year-old male with a history of hypertension and insulin-dependent diabetes presents with shortness of breath. Abrupt in onset. He is hypertensive on presentation. Throughout his ER stay he does have moments where he becomes tachypneic as well as hypoxic around 90%. I am unsure if this is his baseline or not given his other comorbidities and body habitus however given his reported significant change in symptoms, I am concerned that this is in fact new for him. Cardiac enzymes and BNP evaluated within normal limits. Chest x-ray concerning for alveolar edema therefore CTA was also obtained which was negative for pulmonary embolism but does support consolidation and groundglass opacities for pneumonia. COVID and flu negative. Patient does require supplemental oxygen at times, therefore breathing treatments initiated as well as antibiotics. Patient will benefit from hospitalization given his oxygen requirement my concern for safety if he were to be discharged home. Will try to obtain ABG for baseline purposes and I considered a BiPAP although this may be aggressive at this time as he does remain quite stable with supplemental nasal cannula oxygen. []
[2023-12-31] MEDS: DUONEB NEB STA (20:18)
[2023-12-31 20:25] LABS: ABG O2 HGB 88.7 % (95-100); ABG PH 7.49 (7.35-7.45); BEecf 1.1 (-2.0-3.0); HCO3 24.4 (21-28); MetHb 0.6 (0-1.5); TCO2 25.4 (19-24); sO2 91.2 % (94-98); tHb 14.1 g/dl (11.7-17.4)
[2023-12-31] MEDS ORDERED: DUONEB NEB PRN (20:50)
[2023-12-31 21:18] VITALS: BMI 49.8
[2023-12-31] MEDS ORDERED: ZOFRAN ODT PO PRN (21:23)
[2023-12-31] MEDS ORDERED: ATARAX PO PRN (21:23)
[2023-12-31] MEDS ORDERED: HYDRALAZINE HCL IVP PRN (21:29)
[2023-12-31] MEDS: HUMALOG SUBCUT PRN (21:41)
[2023-12-31] MEDS: CATAPRES PO SCH (22:07)
[2023-12-31] MEDS: LANTUS SUBCUT SCH (22:08)
[2023-12-31] MEDS: LIPITOR PO SCH (22:08)
[2024-01-01 04:30] LABS: BASOPHILS % (AUTO) 0.2 % (0.0-3.0); EOSINOPHILS % (AUTO) 0.1 % (0.0-7.0); HEMATOCRIT 40.6 % (42.0-52.0); HEMOGLOBIN 12.7 g/dl (14.0-18.0); IMMATURE GRANULOCYTE % (AUTO) 0.4 % (0.0-5.0); LYMPHOCYTES # (AUTO) 1.4 K/uL (0.60-3.4); MEAN CORPUSCULAR HGB CONC 31.3 (31.8-35.4); MEAN CORPUSCULAR VOLUME 86.4 fl (80.0-94.0); MONOCYTES # (AUTO) 0.3 K/uL (0.4-2.0); MONOCYTES % (AUTO) 2.6 (0-10); NEUTROPHILS % (AUTO) 82.7 % (42.2-75.2); PLATELET COUNT 287 10^3/uL (140-440); RDW COEFFICIENT OF VARIATION 14.6 % (11.6-14.8)
[2024-01-01 04:41] LABS: CALCIUM 9.43 mg/dL (8.4-10.2); CARBON DIOXIDE 25.9 mmol/L (22-30.0); CHLORIDE 104.5 mmol/L (98-107); CREATININE 0.56 mg/dL (0.60-1.10); GLUCOSE 339.8 mg/dL (74-106); POTASSIUM 4.52 mmol/L (3.5-5.1); SODIUM 139.1 mmol/L (134.5-145)
[2024-01-01] MEDS ORDERED: CATAPRES PO PRN (07:18)
[2024-01-01] MEDS: GLUCOTROL PO SCH (07:37)
[2024-01-01] MEDS: ZITHROMAX 500 MG in SODIUM CHLORIDE 250 ML IV SCH (08:20)
[2024-01-01] MEDS: TRIGLIDE PO SCH (08:38)
[2024-01-01] MEDS: PROTONIX PO SCH (08:39)
[2024-01-01] MEDS: PROZAC PO SCH (08:40)
[2024-01-01] MEDS: NORVASC PO SCH (08:41)
[2024-01-01] MEDS: ZESTRIL PO SCH (08:44)
[2024-01-01] MEDS: JARDIANCE PO SCH (08:44)
[2024-01-01] MEDS: VITAMIN D PO SCH (09:02)
--- NOTE | 2024-01-01 09:29 | PCM ---
Date of Service Date Seen by Provider: 01/01/24 Time Seen by Provider: 08:30 Admit Day/Time Admission Date: 12/31/23 Admission Time: 19:29 Reason for Admission Chief Complaint: PNA, HYPOXIA, HTN, IDDM Hospital Provider Hospital Provider: ASHLEY SINGLETON PA-C, [facility] Primary Care Physician Primary Care Physician: LUCA SRINIVASAN History of Present Illness History of Present Illness: Patient is a 28 year old male with pmhx of DMT2 insulin dependent, hypertension, hyperlipidemia, obesity, fatty liver disease who presents for worsening SOB over last 3 days. He has had a cough. No fever. No hx of asthma. States he's had pneumonia in the past. He has sleep apnea but doesn't wear a CPAP. He was found to be tachypneic and hypoxic in the ER with sats in upper 80s. ABG showed PO2 of 56. He was placed on 2L. CTA showed bilateral pneumonia. Procal mildly elevated. He was given antibiotics, steroids, breathing treatment. Admitted to med surg. Patient states today he's feeling a little better. He is requiring 3L today. Case Discussed With Case Discussed With: Patient's case was discussed with the ER Physicians, Dr. Lew. [facility] Medical History Hypertension I10 - Essential (primary) hypertension (ICD-10) Personal history of musculoskeletal disorder Compression fracture of L3 Z87.39 - Personal history of other diseases of the musculoskeletal system and connective tissue (ICD-10) Surgical History Status post tonsillectomy Z90.89 - Acquired absence of other organs (ICD-10) Status post cholecystectomy Z90.49 - Acquired absence of other specified parts of digestive tract (ICD- 10) Status post tonsillectomy and adenoidectomy Z90.89 - Acquired absence of other organs (ICD-10) Family History Mother Diabetes FATHER Diabetes Grandfather/Grandmother Diabetes Stroke Other Fibromyalgia Glaucoma Neuropathy Social History Smoking and tobacco status: Never smoker Substance use type: marijuana Allergies Allergies Allergy/AdvReac Type Severity Reaction Status Date / Time metformin Allergy Mild Diarrhea Verified 12/31/23 15:41 canagliflozin [From Invokana] Allergy Rash Verified 12/31/23 15:41 Current Medications Home Medications lancets 33 gauge ##1 08/15/17 [History Confirmed 12/31/23 Last Taken Unknown] blood sugar diagnostic (Blood Glucose Test strips) #150 strips 10/08/17 [History Confirmed 12/31/23 Last Taken Unknown] blood-glucose meter #1 ea 10/08/17 [History Confirmed 12/31/23 Last Taken Unknown] lisinopril 40 mg tablet 40 mg PO DAILY #30 tab-caps 05/11/18 [History Confirmed 12/31/23 Last Taken 11/21/22] clonidine HCl 0.1 mg tablet 0.1 mg PO DIRECTED #30 tab-caps 07/21/18 [History Confirmed 12/31/23 Last Taken 11/21/22] amlodipine 2.5 mg tablet 2.5 mg PO DAILY 06/19/21 [History Confirmed 12/31/23 Last Taken 11/21/22] cholecalciferol (vitamin D3) 50 mcg (2,000 unit) tablet (Vitamin D3) 50 mcg PO DAILY #30 tabs 06/19/21 [Rx Confirmed 12/31/23 Last Taken 11/21/22] empagliflozin 10 mg tablet (Jardiance) 10 mg PO DAILY 06/19/21 [History Confirmed 12/31/23 Last Taken 11/21/22] fenofibrate 54 mg tablet 54 mg PO DAILY 06/19/21 [History Confirmed 12/31/23 Last Taken 11/21/22] fluoxetine 10 mg capsule 10 mg PO DAILY 06/19/21 [History Confirmed 12/31/23 Last Taken 11/21/22] glipizide 10 mg tablet 10 mg PO DAILY 06/19/21 [History Confirmed 12/31/23 Last Taken 11/21/22] hydroxyzine HCl 25 mg tablet 25 mg PO DAILY PRN Anxiety 06/19/21 [History Confirmed 12/31/23 Last Taken 11/21/22] insulin glargine 100 unit/mL (3 mL) subcutaneous pen (Lantus Solostar U-100 Insulin) 30 unit subcut BEDTIME 06/19/21 [History Confirmed 12/31/23 Last Taken 11/20/22] pantoprazole 40 mg tablet,delayed release 40 mg PO DAILY 06/19/21 [History Confirmed 12/31/23 Last Taken 11/21/22] ondansetron 4 mg disintegrating tablet 4 mg PO Q8H PRN nausea and vomiting #30 tabs 12/19/23 [Rx Confirmed 12/31/23 Last Taken Unknown] atorvastatin 40 mg tablet (Lipitor) 40 mg PO QPM 12/31/23 [History Confirmed 12/31/23 Last Taken Unknown] Home Acetaminophen (Acetaminophen 325 Mg Tablet) 650 mg PO Q4-6H PRN PRN Reason: Mild/Moderate Pain Albuterol/Ipratropium (Ipratropium/Albuterol Vial.Neb) 3 ml NEB RTQ6H PRN PRN Reason: Wheezing Amlodipine Besylate (Amlodipine Besylate 5 Mg Tablet) 2.5 mg PO DAILY [facility] Last Admin: 01/01/24 08:41 Dose: 2.5 mg Atorvastatin Calcium (Atorvastatin Calcium 20 Mg Tablet) 40 mg PO QPM [facility] Last Admin: 12/31/23 22:08 Dose: 40 mg Cholecalciferol (Cholecalciferol (Vitamin D3) 1,000 Unit (25 Mcg) Tablet) 1,000 unit PO DAILY [facility] Last Admin: 01/01/24 09:02 Dose: 1,000 unit Clonidine (Clonidine Hcl 0.1 Mg Tablet) 0.1 mg PO BID PRN PRN Reason: BLOOD PRESSURE: SEE COMMENT Empagliflozin (Empagliflozin 10 Mg Tablet) 10 mg PO DAILY [facility] Last Admin: 01/01/24 08:44 Dose: 10 mg Enoxaparin Sodium (Enoxaparin Sodium 40 Mg/0.4 Ml Syr) 40 mg SUBCUT DAILY [facility] Last Admin: 01/01/24 10:59 Dose: 40 mg Fenofibrate (Fenofibrate 54 Mg Tablet) 54 mg PO DAILY [facility] Last Admin: 01/01/24 08:38 Dose: 54 mg Fluoxetine HCl (Fluoxetine Hcl 10 Mg Capsule) 10 mg PO DAILY [facility] Last Admin: 01/01/24 08:40 Dose: 10 mg Glipizide (Glipizide 5 Mg Tablet) 10 mg PO DAILYWM2 [facility] Last Admin: 01/01/24 07:37 Dose: 10 mg Hydralazine HCl (Hydralazine Hcl 20 Mg/Ml Sdv) 10 mg IVP Q6H PRN PRN Reason: Hypertension Hydroxyzine HCl (Hydroxyzine Hcl 25 Mg Tablet) 25 mg PO DAILY PRN PRN Reason: Anxiety CEFTRIAXONE/D5W 1 GM PREMIX (Rocephin 1 Gm/50 Ml D5w) 1 gm in 50 mls @ 75 mls/hr IV DAILY [facility] Stop: 01/04/24 08:59 Last Admin: 01/01/24 10:55 Dose: 75 mls/hr Azithromycin 500 mg/ Sodium (Chloride) 250 mls @ 125 mls/hr IV DAILY [facility] Stop: 01/03/24 10:59 Last Admin: 01/01/24 08:20 Dose: 125 mls/hr Insulin Glargine (Insulin Glargine,Hum.Rec.Anlog 100 Units/Ml) 30 unit SUBCUT BEDTIME [facility] Last Admin: 12/31/23 22:08 Dose: 30 unit Insulin Human Lispro (Insulin Lispro 100 Unit/Ml Vial) 0 unit SUBCUT PRN PRN; Protocol PRN Reason: Hyperglycemia Last Admin: 01/01/24 05:07 Dose: 10 unit Lisinopril (Lisinopril 40 Mg Tablet) 40 mg PO DAILY [facility] Last Admin: 01/01/24 08:44 Dose: 40 mg Ondansetron HCl (Ondansetron Hcl 4 Mg Tab.Rapdis) 4 mg PO Q8H PRN PRN Reason: Nausea / Vomiting Pantoprazole Sodium (Pantoprazole Sodium 40 Mg Tablet.Dr) 40 mg PO QDAC2 [facility] Last Admin: 01/01/24 08:39 Dose: 40 mg Sodium Chloride (0.9% Sodium Chloride 10 Ml Disp.Syrin) 1 syr IVF Q8HR [facility] Last Admin: 01/01/24 13:15 Dose: 1 syr Discontinued Medications Albuterol/Ipratropium (Ipratropium/Albuterol Vial.Neb) 6 ml NEB ONCE STA Stop: 12/31/23 19:20 Last Admin: 12/31/23 20:18 Dose: 6 ml Aspirin (Aspirin 81 Mg Tab.Chew) 324 mg PO ONCE STA Stop: 12/31/23 15:31 Last Admin: 12/31/23 16:19 Dose: 324 mg Azithromycin (Azithromycin 250 Mg Tablet) 500 mg PO ONCE ONE Stop: 12/31/23 18:43 Last Admin: 12/31/23 19:14 Dose: 500 mg Clonidine (Clonidine Hcl 0.1 Mg Tablet) 0.1 mg PO DIRECTED [facility] Last Admin: 01/01/24 05:07 Dose: 0.1 mg Clonidine (Clonidine Hcl 0.1 Mg Tablet) 0.1 mg PO DIRECTED PRN PRN Reason: BLOOD PRESSURE: SEE COMMENTS Dexamethasone Sodium Phosphate (Dexamethasone Sod Phos 10 Mg/Ml Inj) 10 mg IVP ONCE ONE Stop: 12/31/23 17:10 Last Admin: 12/31/23 17:36 Dose: 10 mg CEFTRIAXONE/D5W 1 GM PREMIX (Rocephin 1 Gm/50 Ml D5w) 1 gm in 50 mls @ 100 mls/hr IV ONCE ONE Stop: 12/31/23 19:27 Last Admin: 12/31/23 19:13 Dose: 100 mls/hr Opioid Naive vs. Tolerant Does Patient Take Opioids?: No Is Patient Opioid Naive?: Yes What is Opioid Naive?: *Opioid Naive implies the patient is not already taking opioids or not chronically receiving opioids on a daily basis. *PRN dosing is not "usually" associated with tolerance. *Patients are at higher risk of over-sedation and aspiration. Is Patient Opioid Tolerant?: No What is Opioid Tolerant?: *Opioid Tolerance implies less than the expected response to an opioid. *Acquired tolerance is defined by the patient taking 60mg of oral morphine daily (or equianalgesic dose of another opioid) for 1 week or more. *Often associated with chronic pain. *May take more than usual dose to achieve desired pain control. Review of Systems Constitutional: Reports Fatigue; Denies Fever or Weakness Head: Reports Normocephalic and Atraumatic Cardiovascular: Denies Chest pain, Chest Pressure or Edema Respiratory: Reports Cough and Shortness of air Gastrointestinal: Denies Nausea, Vomiting, Diarrhea, Abdominal pain or Melena Genitourinary: Denies Dysuria or Hematuria Dermatologic: Denies Rashes Neurological: Denies Headache or Weakness Physical examination Most Recent Vital Signs: Most Recent Vital Signs Temperature 97.9 F 01/01/24 05:09 Temperature Source Oral 01/01/24 05:09 Temperature Source Infrared 12/31/23 15:37 Pulse Rate 96 01/01/24 07:49 Respiratory Rate 30 H 01/01/24 07:49 Blood Pressure 135/88 01/01/24 06:17 Blood Pressure Mean 103 01/01/24 06:17 Blood Pressure Right Arm 202/121 12/31/23 20:54 Blood Pressure Location Right Arm 01/01/24 06:17 Blood Pressure Position Supine 01/01/24 06:17 O2 Sat by Pulse Oximetry 100 01/01/24 08:55 Oxygen Delivery Method Nasal Cannula 01/01/24 08:55 Oxygen Flow Rate 3 01/01/24 08:55 Height 5 ft 9 in 12/31/23 20:54 Weight 337 lb 6 oz 12/31/23 20:54 Telemetry Type Remote Telemetry 01/01/24 06:49 Telemetry Monitoring Continues 01/01/24 06:49 Telemetry Heart Rate 84 01/01/24 06:49 Telemetry SPO2 93 01/01/24 06:49 EKG TX Interval 0.16 01/01/24 06:49 EKG QRS Interval 0.04 L 01/01/24 06:49 Telemetry Strip Reading NSR 01/01/24 06:49 Appearance: Positive No Apparent Distress, Alert and Oriented x3 and Obese Skin: Positive [place], Warm and Good Turgor; Negative Rashes HEENT: Positive Normocephalic and Atraumatic Neck: Positive Supple and Midline Trachea Chest/Lungs: Positive Clear to Auscultation Bilaterally; Negative Rales, Rhonci or Wheezes Heart: Positive RRR GI/: Positive Soft, Nontender, Bowel Sounds Normal and No Distention Extremities: Negative Edema Neurological: Positive Cranial Nerves Intact, Alert, Oriented and Muscle Strength 5/5 in Upper and Lower Extremities Bilaterally Psychiatric: Positive Oriented x4, Appropriate Mood and Appropriate Affect Labs This Visit Labs This Visit: Labs This Visit 12/31/23 12/31/23 12/31/23 15:43 15:49 16:09 WBC 8.10 RBC 4.78 Hgb 13.1 L Hct 41.1 L MCV 86.0 MCH 27.4 MCHC 31.9 RDW Coeff of Stephen 14.5 Plt Count 292 Immature Gran % (Auto) 0.6 Neut % (Auto) 59.6 Lymph % (Auto) 31.0 [place] % (Auto) 4.4 Eos % (Auto) 3.5 Baso % (Auto) 0.9 Neut # (Auto) 4.8 Lymph # (Auto) 2.5 [place] # (Auto) 0.4 Eos # (Auto) 0.3 Baso # (Auto) 0.1 Immature Gran # (Auto) 0.1 Puncture Site Base Excess O2 Saturation ABG pH ABG pCO2 ABG pO2 ABG HCO3 ABG Total CO2 Gordon Test Hemoglobin Oxyhemoglobin Carboxyhemoglobin Total Hemoglobin Sodium 138.4 Potassium 3.50 Chloride 108.3 H Carbon Dioxide 20.8 L Anion Gap 12.80 BUN 8.5 L Creatinine 0.44 L Estimated GFR (MDRD) 231.00 BUN/Creatinine Ratio 19.31 Glucose 280.9 H Calcium 9.16 Total Bilirubin 0.64 AST 36.8 ALT 43.7 Alkaline Phosphatase 97.5 Troponin I < 0.012 NT-Pro-B Natriuret Pep Total Protein 7.86 Albumin 4.10 Globulin 3.76 Albumin/Globulin Ratio 1.09 Procalcitonin Urine Opiates Screen Negative Ur Oxycodone Screen Negative Urine Methadone Screen Negative Ur Barbiturates Screen Negative U Tricyclic Antidepress Negative Ur Phencyclidine Scrn Negative Ur Amphetamine Screen Negative U Methamphetamines Scrn Negative U Benzodiazepines Scrn Negative Urine Cocaine Screen Negative U Cannabinoids Screen Positive H Influ A Molecular Assay Negative by naat Influ B Molecular Assay Negative by naat SARS CoV-2 RNA Rapid LIAM Negative 12/31/23 12/31/23 12/31/23 16:29 20:17 21:01 WBC RBC Hgb Hct MCV MCH MCHC RDW Coeff of Stephen Plt Count Immature Gran % (Auto) Neut % (Auto) Lymph % (Auto) [place] % (Auto) Eos % (Auto) Baso % (Auto) Neut # (Auto) Lymph # (Auto) [place] # (Auto) Eos # (Auto) Baso # (Auto) Immature Gran # (Auto) Puncture Site Lbrach Base Excess 1.1 O2 Saturation 91.2 L ABG pH 7.49 H ABG pCO2 32.0 L ABG pO2 56.0 L* ABG HCO3 24.4 ABG Total CO2 25.4 H Gordon Test N/a Hemoglobin 0.6 Oxyhemoglobin 88.7 L Carboxyhemoglobin 2.0 H Total Hemoglobin 14.1 Sodium Potassium Chloride Carbon Dioxide Anion Gap BUN Creatinine Estimated GFR (MDRD) BUN/Creatinine Ratio Glucose Calcium Total Bilirubin AST ALT Alkaline Phosphatase Troponin I NT-Pro-B Natriuret Pep < 20 Total Protein Albumin Globulin Albumin/Globulin Ratio Procalcitonin 0.09 H Urine Opiates Screen Ur Oxycodone Screen Urine Methadone Screen Ur Barbiturates Screen U Tricyclic Antidepress Ur Phencyclidine Scrn Ur Amphetamine Screen U Methamphetamines Scrn U Benzodiazepines Scrn Urine Cocaine Screen U Cannabinoids Screen Influ A Molecular Assay Influ B Molecular Assay SARS CoV-2 RNA Rapid LIAM 01/01/24 04:17 WBC 9.70 RBC 4.70 Hgb 12.7 L Hct 40.6 L MCV 86.4 MCH 27.0 MCHC 31.3 L RDW Coeff of Stephen 14.6 Plt Count 287 Immature Gran % (Auto) 0.4 Neut % (Auto) 82.7 H Lymph % (Auto) 14.0 [place] % (Auto) 2.6 Eos % (Auto) 0.1 Baso % (Auto) 0.2 Neut # (Auto) 8.0 H Lymph # (Auto) 1.4 [place] # (Auto) 0.3 L Eos # (Auto) 0.0 Baso # (Auto) 0.0 Immature Gran # (Auto) 0.0 Puncture Site Base Excess O2 Saturation ABG pH ABG pCO2 ABG pO2 ABG HCO3 ABG Total CO2 Gordon Test Hemoglobin Oxyhemoglobin Carboxyhemoglobin Total Hemoglobin Sodium 139.1 Potassium 4.52 Chloride 104.5 Carbon Dioxide 25.9 Anion Gap 13.22 BUN 10.0 Creatinine 0.56 L Estimated GFR (MDRD) 175.00 BUN/Creatinine Ratio 17.85 Glucose 339.8 H D Calcium 9.43 Total Bilirubin AST ALT Alkaline Phosphatase Troponin I NT-Pro-B Natriuret Pep Total Protein Albumin Globulin Albumin/Globulin Ratio Procalcitonin Urine Opiates Screen Ur Oxycodone Screen Urine Methadone Screen Ur Barbiturates Screen U Tricyclic Antidepress Ur Phencyclidine Scrn Ur Amphetamine Screen U Methamphetamines Scrn U Benzodiazepines Scrn Urine Cocaine Screen U Cannabinoids Screen Influ A Molecular Assay Influ B Molecular Assay SARS CoV-2 RNA Rapid [facility] Imaging Imaging: EXAM: FRONTAL CHEST RADIOGRAPH(S). 1 VIEW. History: Chest pain, shortness of breath Comparison: 01/31/2023 Findings: Heart size normal. No pneumothorax or pleural effusion. Pulmonary alveolar edema. No lobar consolidation. Impression: Pulmonary alveolar edema. EXAM: CHEST CTA WITH CONTRAST (PULMONARY ARTERY) HISTORY: Chest pain and shortness of breath. Cough. TECHNIQUE: CTA acquisition of the chest from the thoracic inlet to the upper abdomen following IV contrast administration timed to filling of the pulmonary artery. IV Contrast: 100 mL of Omnipaque 350 administered. 3D/MIP/VR images were utilized. CT Dose Reduction Techniques Employed: Yes. COMPARISON: None. FINDINGS: Pulmonary Embolism: - Diagnostic quality: Adequate. - Central (Main/Lobar/Interlobar): No embolus. - Peripheral (Segmental/Subsegmental): No embolus. - Right ventricle/Left ventricle ratio: Normal. Lines, Tubes, Devices: None. Lung Parenchyma and Airways: Central airways are patent without endobronchial lesion. Moderate diffuse bilateral ground-glass opacification bilaterally in the perihilar distribution with regions of confluence and consolidation in the upper lung zones. No suspicious pulmonary nodule. Pleural Space: No pleural effusion or thickening. No pneumothorax. Thoracic Inlet, Mediastinum, and Saray: Thyroid gland is normal. No lymphadenopathy. Heart, Vessels, and Pericardium: The thoracic aorta is not dilated. No aortic dissection. The heart chambers are not enlarged. There is no pericardial effusion or thickening. Bones and Soft Tissues: There is no fracture or lytic lesion. Chest wall soft tissues are unremarkable. Upper Abdomen: Diffuse decreased attenuation of the liver. Probable hepatomegaly. Right adrenal 3.3 x 2.5 cm nodule measuring 13 HU. Normal visualized portion of left adrenal. Surgical clips from previous cholecystectomy. IMPRESSION: 1. Normal CT pulmonary angiogram with no evidence of pulmonary artery embolism. 2. Bilateral consolidation and ground-glass opacification consistent with probable atypical pneumonia. 3. 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 4. Right adrenal 3.3 cm nodule. Follow-up as indicated below. 5. Previous cholecystectomy. 6. Otherwise unremarkable CT scan of the chest. Follow up Recommendations for Incidental Adrenal Nodules. No follow up: -Nodule < 1 cm. -Nodule >1 cm <4 cm stable for >1 year. -Nodule < 10 HU. -Non enhancing nodule. -Nodule containing macroscopic fat. - Nodules 1-2 cm (probably benign): [address] Adrenal follow-up can be considered in the absence of prior imaging or history of cancer. - Nodules 2-4 cm: Adrenal CT - Nodules > 4 cm: resection (no cancer history) or PET/biopsy (cancer history) Review Statement Review Statement: I have independently reviewed and interpreted the labs/EKGs/imaging that were ordered by the ER provider. I have reviewed all outside records that are available currently in our EMR including imaging/notes/labs from previous visits. Plan Plan: 1. Acute hypoxic respiratory failure in setting of bilateral CAP - Wean o2 when able, abx, duonebs 2. CAP, bilateral - Azith/rocephin, duonebs, trend infection markers, rt consult 3. DMT2, insulin dependent - Cont home meds. 4. Hypertension - Cont home meds 5. Hyperlipidemia - Cont home meds 6. PREET - Does not wear cpap at night DVT Prophylaxis: Lovenox Time Spent: Greater than 80 minutes spent with patient, 50% of the time spent with this patient was devoted to counseling and coordination of care. [facility] minutes spent discussing advance care planning. FULL CODE Admit to: Inpatient Discussed Plan of Care with Dr. Alethea Anand. Medications Medication Orders: Medications Ordered Category Date Time Status 0.9 % Sodium Chloride [Saline Flush] Meds 01/01/24 05:10 Active 1 syr IVF Q8HR Acetaminophen [Tylenol] Meds 12/31/23 20:50 Active 650 mg PO Q4-6H PRN Amlodipine Besylate [Norvasc] Meds 01/01/24 09:00 Active 2.5 mg PO DAILY Atorvastatin Calcium [Lipitor] Meds 12/31/23 21:23 Active 40 mg PO QPM Azithromycin Inj [Zithromax] 500 mg Meds 01/01/24 09:00 Active 0.9 % Sodium Chloride [Sodium Chloride] 250 ml IV DAILY Ceftriaxone/D5w 1 gm Premix [Rocephin 1 gm/50 ml D5w] Meds 01/01/24 09:00 Active 1 gm in 50 ml IV DAILY Cholecalciferol (Vitamin D3) [Vitamin D] Meds 01/01/24 09:00 Active 1,000 unit PO DAILY Clonidine HCl [Catapres] Meds 01/01/24 07:22 Active 0.1 mg PO BID PRN Empaglifozin [Jardiance] Meds 01/01/24 09:00 Active 10 mg PO DAILY Fenofibrate [Triglide] Meds 01/01/24 09:00 Active 54 mg PO DAILY Fluoxetine HCl [Prozac] Meds 01/01/24 09:00 Active 10 mg PO DAILY Glipizide [Glucotrol] Meds 01/01/24 07:30 Active 10 mg PO DAILYWM2 Hydralazine HCl Meds 12/31/23 21:29 Active 10 mg IVP Q6H PRN Hydroxyzine HCl [Atarax] Meds 12/31/23 21:23 Active 25 mg PO DAILY PRN Insulin Glargine,Hum.rec.anlog [Lantus] Meds 12/31/23 21:25 Active 30 unit SUBCUT BEDTIME Insulin Lispro [Humalog] Meds 12/31/23 20:53 Active See Protocol SUBCUT PRN PRN Ipratropium/Albuterol Neb [Duoneb] Meds 12/31/23 20:50 Active 3 ml NEB RTQ6H PRN Lisinopril [Zestril] Meds 01/01/24 09:00 Active 40 mg PO DAILY Ondansetron [Zofran Odt] Meds 12/31/23 21:23 Active 4 mg PO Q8H PRN Pantoprazole Sodium [Protonix] Meds 01/01/24 09:00 Active 40 mg PO QDAC2
[2024-01-01] MEDS: ROCEPHIN 1 GM/50 ML D5W 1 GM/50 ML BAG IV SCH (10:55)
[2024-01-01] MEDS: LOVENOX SUBCUT SCH (10:59)
[2024-01-01] MEDS: CATAPRES PO PRN (18:54)
[2024-01-01] MEDS: TYLENOL PO PRN (19:37)
[2024-01-02 07:29] LABS: BASOPHILS # (AUTO) 0.1 K/uL (0-0.2); BASOPHILS % (AUTO) 0.8 % (0.0-3.0); EOSINOPHILS # (AUTO) 0.2 K/ul (0.0-0.7); EOSINOPHILS % (AUTO) 2.1 % (0.0-7.0); HEMATOCRIT 42.1 % (42.0-52.0); HEMOGLOBIN 13.1 g/dl (14.0-18.0); IMMATURE GRANULOCYTE % (AUTO) 0.4 % (0.0-5.0); LYMPHOCYTES # (AUTO) 2.6 K/uL (0.60-3.4); LYMPHOCYTES % (AUTO) 33.8 (10.0-50.0); MEAN CORPUSCULAR HEMOGLOBIN 27.1 pg (27.0-31.0); MEAN CORPUSCULAR HGB CONC 31.1 (31.8-35.4); MEAN CORPUSCULAR VOLUME 87.2 fl (80.0-94.0); MONOCYTES # (AUTO) 0.4 K/uL (0.4-2.0); MONOCYTES % (AUTO) 4.9 (0-10); NEUTROPHILS # (AUTO) 4.4 K/ul (2.0-6.9); PLATELET COUNT 279 10^3/uL (140-440); RDW COEFFICIENT OF VARIATION 14.8 % (11.6-14.8); RED BLOOD COUNT 4.83 10^6/ul (4.70-6.10); WHITE BLOOD COUNT 7.55 K/ul (4.2-10.2)
[2024-01-02 07:30] LABS: BLOOD UREA NITROGEN 12.3 mg/dL (9-20); CALCIUM 8.61 mg/dL (8.4-10.2); CARBON DIOXIDE 25.2 mmol/L (22-30.0); CHLORIDE 105.7 mmol/L (98-107); CREATININE 0.58 mg/dL (0.60-1.10); GLUCOSE 202.9 mg/dL (74-106); POTASSIUM 3.7 mmol/L (3.5-5.1)
--- NOTE | 2024-01-02 09:21 | DCSUM ---
Admission Date Admission Date: 12/31/23 Discharge Date Discharge Date: 01/02/24 Admission Diagnosis Admission Diagnosis: 1. Acute hypoxic respiratory failure in setting of bilateral CAP 2. CAP, bilateral Discharge Diagnosis Discharge Diagnosis: 1. Acute hypoxic respiratory failure in setting of bilateral CAP 2. CAP, bilateral 3. DMT2, insulin dependent - Cont home meds. 4. Hypertension - Cont home meds 5. Hyperlipidemia - Cont home meds 6. PREET - Does not wear cpap at night Hospital Provider Hospital Provider: ASHLEY SINGLETON PA-C, [facility] Primary Care Physician Primary Care Physician: LUCA SRINIVASAN Summary of History and Physical Summary of History and Physical: Patient is a 28 year old male with pmhx of DMT2 insulin dependent, hypertension, hyperlipidemia, obesity, fatty liver disease who presents for worsening SOB over last 3 days. He has had a cough. No fever. No hx of asthma. States he's had pneumonia in the past. He has sleep apnea but doesn't wear a CPAP. He was found to be tachypneic and hypoxic in the ER with sats in upper 80s. ABG showed PO2 of 56. He was placed on 2L. CTA showed bilateral pneumonia. Procal mildly elevated. He was given antibiotics, steroids, breathing treatment. Admitted to med surg. Patient states today he's feeling a little better. He is requiring 3L today. Hospital Course Subjective: Patient was treated with O2, rocephin, azith, and duonebs. He was weaned to RA on evening on 12/31 and did well. He has remained on RA. He is feeling much better today and ready for discharge. Will discharge on augmentin and azith remainder. Discussed his adrenal nodule and need for outpatient f/u. Discussed his PREET and need for outpatient follow through with CPAP. Discussed this may help with his hypertension as well. Will increase amlodipine to help with better BP control and minimize need for clonidine through the day. Monitor BP at home. Pt would maybe also benefit from changing from victoza to mounjaro or ozempic if insurance allows. Appearance: Pleasant, No Apparent Distress, Alert and Other (+obese ) HEENT: MMM CVS: No Murmur Abdomen: Soft, Non-Tender and No Distention Respiratory: No Accessory Muscle Use Extremities: No Edema Vital Signs: Most Recent Vital Signs Temperature 97.6 F 01/02/24 05:25 Temperature Source Oral 01/02/24 05:25 Temperature Source Infrared 12/31/23 15:37 Pulse Rate 77 01/02/24 05:25 Respiratory Rate 16 01/02/24 05:25 Blood Pressure 149/79 H 01/02/24 06:38 Blood Pressure Mean 102 01/02/24 06:38 Blood Pressure Right Arm 202/121 12/31/23 20:54 Blood Pressure Location Right Arm 01/02/24 06:38 Blood Pressure Position Supine 01/02/24 06:38 O2 Sat by Pulse Oximetry 95 01/02/24 06:06 Oxygen Delivery Method Room Air 01/02/24 06:38 Oxygen Flow Rate 1 01/01/24 18:00 Height 5 ft 9 in 12/31/23 20:54 Weight 337 lb 6 oz 12/31/23 20:54 Telemetry Type Bedside Monitor 01/02/24 07:00 Telemetry Monitoring Continues 01/02/24 07:00 Telemetry Heart Rate 78 01/02/24 07:00 Telemetry SPO2 95 01/02/24 07:00 EKG NV Interval 0.15 01/02/24 07:00 EKG QRS Interval 0.09 01/02/24 07:00 Telemetry Strip Reading NSR 01/02/24 07:00 Imaging: EXAM: FRONTAL CHEST RADIOGRAPH(S). 1 VIEW. History: Chest pain, shortness of breath Comparison: 01/31/2023 Findings: Heart size normal. No pneumothorax or pleural effusion. Pulmonary alveolar edema. No lobar consolidation. Impression: Pulmonary alveolar edema. EXAM: CHEST CTA WITH CONTRAST (PULMONARY ARTERY) HISTORY: Chest pain and shortness of breath. Cough. TECHNIQUE: CTA acquisition of the chest from the thoracic inlet to the upper abdomen following IV contrast administration timed to filling of the pulmonary artery. IV Contrast: 100 mL of Omnipaque 350 administered. 3D/MIP/VR images were utilized. CT Dose Reduction Techniques Employed: Yes. COMPARISON: None. FINDINGS: Pulmonary Embolism: - Diagnostic quality: Adequate. - Central (Main/Lobar/Interlobar): No embolus. - Peripheral (Segmental/Subsegmental): No embolus. - Right ventricle/Left ventricle ratio: Normal. Lines, Tubes, Devices: None. Lung Parenchyma and Airways: Central airways are patent without endobronchial lesion. Moderate diffuse bilateral ground-glass opacification bilaterally in the perihilar distribution with regions of confluence and consolidation in the upper lung zones. No suspicious pulmonary nodule. Pleural Space: No pleural effusion or thickening. No pneumothorax. Thoracic Inlet, Mediastinum, and Saray: Thyroid gland is normal. No lymphadenopathy. Heart, Vessels, and Pericardium: The thoracic aorta is not dilated. No aortic dissection. The heart chambers are not enlarged. There is no pericardial effusion or thickening. Bones and Soft Tissues: There is no fracture or lytic lesion. Chest wall soft tissues are unremarkable. Upper Abdomen: Diffuse decreased attenuation of the liver. Probable hepatomegaly. Right adrenal 3.3 x 2.5 cm nodule measuring 13 HU. Normal visualized portion of left adrenal. Surgical clips from previous cholecystectomy. IMPRESSION: 1. Normal CT pulmonary angiogram with no evidence of pulmonary artery embolism. 2. Bilateral consolidation and ground-glass opacification consistent with probable atypical pneumonia. 3. 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 4. Right adrenal 3.3 cm nodule. Follow-up as indicated below. 5. Previous cholecystectomy. 6. Otherwise unremarkable CT scan of the chest. - Follow up Recommendations for Incidental Adrenal Nodules. No follow up: -Nodule < 1 cm. -Nodule >1 cm <4 cm stable for >1 year. -Nodule < 10 HU. -Non enhancing nodule. -Nodule containing macroscopic fat. - Nodules 1-2 cm (probably benign): [address] Adrenal follow-up can be considered in the absence of prior imaging or history of cancer. - Nodules 2-4 cm: Adrenal CT - Nodules > 4 cm: resection (no cancer history) or PET/biopsy (cancer history) Lab Results Last 24 Hours: 01/02/24 07:09 WBC 7.55 RBC 4.83 Hgb 13.1 L Hct 42.1 MCV 87.2 MCH 27.1 MCHC 31.1 L RDW Coeff of Stephen 14.8 Plt Count 279 Immature Gran % (Auto) 0.4 Neut % (Auto) 58.0 Lymph % (Auto) 33.8 Crockett % (Auto) 4.9 Eos % (Auto) 2.1 Baso % (Auto) 0.8 Neut # (Auto) 4.4 Lymph # (Auto) 2.6 Crockett # (Auto) 0.4 Eos # (Auto) 0.2 Baso # (Auto) 0.1 Immature Gran # (Auto) 0.0 Sodium 138.0 Potassium 3.70 Chloride 105.7 Carbon Dioxide 25.2 Anion Gap 10.80 BUN 12.3 Creatinine 0.58 L Estimated GFR (MDRD) 168.00 BUN/Creatinine Ratio 21.20 Glucose 202.9 H Calcium 8.61 Discharge Instructions Discharge Planning: Discharge Planning > [address] Alethea Anand. Discharge Medications: Medications at Discharge (Home Meds & RX) Discharge Plan Discharge Discharge Orders: Discharge Patient (ONCE); Ordered 01/02/24 Ordered By: ASHLEY SINGLETON Activity Restrictions/Additional Instructions: DISCHARGE TO HOME DX: PNEUMONIA RIGHT ADRENAL NODULE - FOLLOW UP WITH PCP PHARMACY: [facility]1 FINISH ANTIBIOTICS TAKE PROBIOTIC FOLLOW THROUGH ON CPAP MACHINE INCREASED AMLODIPINE DOSE, MONITOR BP ONCE DAILY AT HOME Instructions: Hypertension (GEN), Pneumonia (GEN) Patient Disposition: HOME SELF-CARE Prescriptions: New amlodipine 5 mg tablet 5 mg PO DAILY Qty: 30 0RF amoxicillin-pot clavulanate 875-125 mg tablet 1 tab PO BID 5 Days Qty: 10 0RF azithromycin 250 mg tablet 250 mg PO DAILY 2 Days Qty: 2 0RF Rx Instructions: START 01/03/24 Continued lisinopril 40 MG tablet 40 mg PO DAILY Qty: 30 clonidine HCl 0.1 MG tablet 0.1 mg PO DIRECTED Qty: 30 Rx Instructions: Take if systolic blood pressure is greater than 150 OR diastolic greater than 90. ondansetron 4 mg tablet,disintegrating 4 mg PO Q8H PRN (Reason: nausea and vomiting) Qty: 30 0RF glipizide 10 mg tablet 10 mg PO DAILY pantoprazole 40 mg tablet,delayed release (DR/EC) 40 mg PO DAILY fluoxetine 10 mg capsule 10 mg PO DAILY hydroxyzine HCl 25 mg tablet 25 mg PO DAILY PRN (Reason: Anxiety) insulin glargine [Lantus Solostar U-100 Insulin] 100 unit/mL (3 mL) insulin pen 30 unit SUBCUT BEDTIME fenofibrate 54 mg tablet 54 mg PO DAILY Jardiance 10 mg tablet 10 mg PO DAILY cholecalciferol (vitamin D3) [Vitamin D3] 50 mcg (2,000 unit) tablet 50 mcg PO DAILY Qty: 30 0RF atorvastatin [Lipitor] 40 MG tablet 40 mg PO QPM Discontinued amlodipine 2.5 mg tablet 2.5 mg PO DAILY No Action (DME) lancets 1 EACH misc 1 ea MC DAILY Qty: 1 (DME) blood-glucose meter 1 EACH misc 1 ea MC ONCE Qty: 1 (DME) Blood Glucose Test 1 EACH strip 1 ea MC TID Qty: 150 Rx Instructions: Check blood sugar three times a day. Keep log of readings. Did you review [place] [employer] for ALL controlled substances?: Not Applicable Discussed opioids are addictive and Narcan is available by prescription or from pharmacy.: No Condition: Stable Referrals: LUCA SRINIVASAN [Primary Care Provider] - 01/07/24 8:30 am (HOSPITAL FOLLOW UP)
[2024-01-02 10:07] VITALS: BP 134/76; PULSE 91; TEMP 96.7
[2024-01-02 10:31] VITALS: RESP 24
== END 2024-01-02 11:45 | disposition home or self-care (01) | DRG 193 ==
LOC: ED 15:28 → SCU 19:50
PROVIDERS: ADMIT Hospitalist; ATTEND Physician Assistant
DX: E66.9 Obesity, unspecified; G47.33 Obstructive sleep apnea (adult) (pediatric); I10 Essential (primary) hypertension; Z20.822 Contact with and (suspected) exposure to COVID-19; E11.9 Type 2 diabetes mellitus without complications; E27.9 Disorder of adrenal gland, unspecified; Z79.4 Long term (current) use of insulin; E78.5 Hyperlipidemia, unspecified; R07.9 Chest pain, unspecified; J18.9 Pneumonia, unspecified organism; K76.0 Fatty (change of) liver, not elsewhere classified; Z51.81 Encounter for therapeutic drug level monitoring; Z79.899 Other long term (current) drug therapy; J96.01 Acute respiratory failure with hypoxia